=== PATIENT | female | born 1980 | race Caucasian/White ===

== ENCOUNTER 2017-07-27 23:14 | Emergency (ER) | payer OTHER ==
[~2017-07-27] VITALS: Ht 167.6 cm; Wt 52.6 kg
[2017-07-28 01:38] VITALS: BP 128/84
== END 2017-07-28 01:39 | disposition home or self-care (01) ==
LOC: ER 23:15
DX: R07.89 Other chest pain (principal); R05 Cough
CPT/HCPCS: 71045; 93005; 99284; A4606; Z7610

== ENCOUNTER 2021-09-17 12:49 | Emergency (ER) | payer OTHER ==
[~2021-09-17] VITALS: Ht 167.6 cm; Wt 56.7 kg
--- NOTE | 2021-09-17 12:55 | NUR ---
BIB SELF C/O L FOOT SWELLING AND BILATERAL KNEE SWELLING STARTED LAST NIGHT PT DENIES INJURY AND PAIN. PT STATED THAT SHE FIRST NOTICED THE SWELLING AT 2200 LAST NIGHT AND THAT IT WAS NOT SWOLLING IN THE MORNING. PT ATTACHED TO MONITOR, VITALS ARE WITHIN NORMAL LIMITS, NO RESP DITRESS NOTED. AWAITING MD ORDERS.
--- NOTE | 2021-09-17 13:16 | NUR ---
PT SEEN AND EXAMINED BY .
--- NOTE | 2021-09-17 13:19 | NUR ---
IV ETSBALISHED L AC 20G. LABS DRAWN AND COLLECTED AT BEDSIDE.
--- NOTE | 2021-09-17 13:23 | NUR ---
X RAY AT BEDSIDE
[2021-09-17 13:29] LABS: BASOPHILS # (AUTO) 0.1 K/uL (0.0-0.2); BASOPHILS % (AUTO) 1.2 % (0.0-2.0); EOSINOPHILS % (AUTO) 1.1 % (0.0-6.0); HEMATOCRIT 37 % (33-45); HEMOGLOBIN 11.7 g/dL (11.5-14.8); LYMPHOCYTES # (AUTO) 1.4 K/uL (0.8-4.8); LYMPHOCYTES % (AUTO) 26.2 % (20.0-44.0); MEAN CORPUSCULAR HGB CONC 32 g/dl (31.0-36.0); MEAN CORPUSCULAR VOLUME 84 fL (82-100); MONOCYTES # (AUTO) 0.5 K/uL (0.1-1.30); MONOCYTES % (AUTO) 9.6 % (2.0-12.0); NEUTROPHILS # (AUTO) 3.2 K/uL (1.8-8.9); NEUTROPHILS % (AUTO) 61.9 % (43.0-81.0); PLATELET COUNT (AUTO) 326 K/uL (150-450); RED BLOOD CELL COUNT(AUTO) 4.38 MIL/uL (4.0-5.2); WHITE BLOOD COUNT (AUTO) 5.2 K/uL (4.3-11.0)
[2021-09-17 13:45] LABS: ALBUMIN 4.2 g/dL (3.4-5.0); BILIRUBIN,DIRECT 0.1 mg/dL (0.0-0.2); BILIRUBIN,TOTAL 0.6 mg/dL (0.2-1.0); CALCIUM, SERUM 9.1 mg/dL (8.5-10.1); CREATININE 0.8 mg/dL (0.6-1.3)
--- NOTE | 2021-09-17 14:01 | NUR ---
ULTRASOUND AT BEDSIDE
[2021-09-17 14:53] LABS: POTASSIUM 3.7 mmol/L (3.5-5.1)
[2021-09-17] MEDS ORDERED: NAPR-1164 PO (15:37)
--- NOTE | 2021-09-17 15:39 | NUR ---
IV removed. Catheter intact and site benign. Pressure and 4x4 applied to site. No bleeding noted. Patient discharged to home in stable condition. Written and verbal after care instructions given. Patient verbalizes understanding of instruction.
[2021-09-17 15:40] VITALS: BP 125/71
[2021-09-17] MEDS ORDERED: IBUPROFEN 600 MG TABLET ONE (15:40)
[2021-09-17] MEDS ORDERED: IBUPROFEN 600 MG TABLET PO ONE (16:00)
== END 2021-09-17 15:48 | disposition home or self-care (01) ==
LOC: ER 12:50
DX: M25.472 Effusion, left ankle (principal); Z88.8 Allergy status to other drugs, medicaments and biological substances
CPT/HCPCS: 36415; 71045-TC; 73590-TC; 80048-TC; 80076-TC; 84702-TC; 85025-TC; 85652-TC; 93971-TC